=== PATIENT | female | born 1945 | race Caucasian/White ===

== ENCOUNTER 2019-08-25 08:13 | Outpatient (CLI) | payer MEDICARE, BC ==
--- NOTE | 2019-08-25 08:33 | RAD ---
EXAM: Chest Two Views 08/25/2019 8:27 AM HISTORY: Fever COMPARISON: None. FINDINGS: Heart: Normal in size and contour. Pulmonary vessels: Normal. Costophrenic angles: Clear. Lungs: No acute airspace consolidation. Pneumothorax: None. Osseous structures:Intact. Additional findings: Cholecystectomy clips are present within the right upper quadrant. There are m ild vascular calcifications involving the thoracic aortic arch. IMPRESSION: No significant acute intrathoracic disease.
== END 2019-08-25 08:14 | disposition home or self-care (01) ==
LOC: BICRAD 08:13
PROVIDERS: ATTEND Nurse Practitioner Family
DX: R50.9 Fever, unspecified (principal)
CPT/HCPCS: 36415; 71046; 81001; 85025; 86140; 87086

== ENCOUNTER 2019-12-22 12:26 | Outpatient (CLI) | payer MEDICARE, BC, OTHER ==
[2019-12-23 11:41] LABS: SARS-CoV-2 MS2 Positive; SARS-CoV-2 N Gene Negative; SARS-CoV-2 S Gene Negative; SARS-CoV-2 orf1ab Negative
== END 2019-12-22 12:27 | disposition home or self-care (01) ==
LOC: LABBT 12:26
PROVIDERS: ATTEND Orthopaedic Surgery
DX: Z11.59 Encounter for screening for other viral diseases (principal)
CPT/HCPCS: 87635; U0003

== ENCOUNTER 2019-12-27 06:33 | Day surgery (SDC) | payer MEDICARE, BC ==
[2019-12-22 13:53] VITALS: BMI 25.4
[2019-12-27] MEDS ORDERED: EPINEPHrine 0.3 MG in Ophthalmic Irrigation Solution 500 ML IRR SCH (06:45)
[2019-12-27] MEDS ORDERED: Phenylephrine 2.5% Ophth Soln 5 ML BOT ONE (07:07)
[2019-12-27] MEDS ORDERED: Cyclopentolate 1% Opth Drop 2 ML BOT ONE (07:08)
[2019-12-27] MEDS ORDERED: Fentanyl 100 MCG/2 ML VIAL ONE (08:36)
[2019-12-27] MEDS ORDERED: Midazolam HCl 2 mg/2 ml Vial ONE (08:36)
[2019-12-27] MEDS ORDERED: Triamcinolone 40 MG/ML VIAL ONE (10:50)
[2019-12-27] MEDS ORDERED: PROPOFOL 200 MG/20 ML VIAL ONE (10:50)
[2019-12-27] MEDS ORDERED: Indocyanine Green 25 MG/10 ML VIAL ONE (10:50)
[2019-12-27] MEDS ORDERED: Bupivacaine PF 0.75% SDV 10 ML ONE (10:50)
[2019-12-27] MEDS ORDERED: Lidocaine 4% PF 5 ML AMP ONE (10:50)
[2019-12-27] MEDS ORDERED: Lidocaine 1% PF 5 ML VIAL ONE (10:50)
[2019-12-27] MEDS ORDERED: CEFAZOLIN 1 GM VIAL ONE (10:50)
[2019-12-27] MEDS ORDERED: Maxitrol 0.1% Opth Oint 3.5 GM TUBE ONE (10:50)
--- NOTE | 2019-12-27 11:31 | OP ---
DATE OF PROCEDURE: 12/27/2019 PRINCIPAL PREOPERATIVE DIAGNOSIS: Epiretinal membrane, right eye. POSTOPERATIVE DIAGNOSIS: Epiretinal membrane, right eye. PROCEDURE PERFORMED: 1. 25-gauge pars plana vitrectomy, right eye. 2. Epiretinal membrane peel/internal limiting membrane peel, right eye. ESTIMATED BLOOD LOSS: None. SPECIMENS REMOVED: None. COMPLICATIONS: None. ANESTHESIA: MAC with subtenon's block. SUMMARY OF OPERATION: The patient was identified in the preoperative holding area. The correct eye being the right eye was marked for surgery. The patient was taken to the operating room, where MAC anesthesia was induced. The right eye was prepped and draped in the usual sterile ophthalmic fashion for surgery. A wire-clip lid speculum was placed. An inferonasal conjunctival peritomy was fashioned with Maryam scissors for administration of subtenon's block. The block consisted of 1:1 ratio of 4% lidocaine and 0.75% Marcaine. Total of 5 mL was administered. A standard 25-gauge pars plana vitrectomy platform was fashioned with trocars placed approximately 3.5 mm from the limbus. The infusion was noted to be within the vitreous cavity prior to being turned on to an infusion pressure of 30 mmHg. The light pipe and microvitrector were introduced in the eye under visualization of the BIOM viewing system. A careful core and peripheral shave vitrectomy were performed. Following vitrectomy, ICG dye was used to stain the internal limiting membrane. Using the Mateo ILM forceps, an internal limiting/epiretinal membrane peel was performed in circumferential fashion about the fovea. The peel extended approximately 2 disk diameters in radius circumferentially. Following peeling, the microvitrector was reintroduced in the eye to remove any residual vitreous debris. A 360-degree scleral depressed exam of periphery revealed no defects. The cannulas were sequentially removed and all sclerotomies were noted to be watertight. Subconjunctival Ancef and Kenalog were injected. The wire-clip lid speculum was removed followed by application of TobraDex ophthalmic ointment and a light patch and shield. The patient tolerated the procedure well and was taken to outpatient recovery in good condition. Job ID: [id number] [facility]
== END 2019-12-27 10:30 | disposition home or self-care (01) ==
LOC: SDC 06:33
PROVIDERS: ATTEND Ophthalmology Retina Specialist
PROC: 08T43ZZ Resection of Right Vitreous, Percutaneous Approach (ICD-10-PCS; principal; 2019-12-27)
PROC: 08NE3ZZ Release Right Retina, Percutaneous Approach (ICD-10-PCS; 2019-12-27)
DX: H35.371 Puckering of macula, right eye (principal); I10 Essential (primary) hypertension; E78.5 Hyperlipidemia, unspecified; Z79.82 Long term (current) use of aspirin; Z79.899 Other long term (current) drug therapy
CPT/HCPCS: J0171; J0690; J2001; J2250; J2704; J3010; J3301; J3490

== ENCOUNTER 2020-04-05 12:15 | Day surgery (SDC) | payer MEDICARE, BC ==
[2020-04-04 10:50] VITALS: BMI 25.7
[~2020-04-05 12:15] MED LIST: Bupivacaine PF 0.75% SDV 10 ML ONE; CEFAZOLIN 1 GM VIAL ONE; Fluorouracil 100 MG, EPINEPHrine 0.3 MG in Ophthalmic Irrigation Solution 500 ML IRR SCH; Lidocaine 1% PF 5 ML VIAL ONE; Lidocaine 4% PF 5 ML AMP ONE; Maxitrol 0.1% Opth Oint 3.5 GM TUBE ONE; Ondansetron PF 4 MG/2 ML Vial ONE; PHENYLEPHRINE-NS 100 MCG/ML 10 ML SYRINGE ONE; PROPOFOL 200 MG/20 ML VIAL ONE; Triamcinolone 40 MG/ML VIAL ONE
[2020-04-05] MEDS ORDERED: Phenylephrine 2.5% Ophth Soln 5 ML BOT ONE (12:37)
[2020-04-05] MEDS ORDERED: Cyclopentolate 1% Opth Drop 2 ML BOT ONE (12:37)
[2020-04-05] MEDS ORDERED: Fentanyl 100 MCG/2 ML VIAL ONE (15:16)
[2020-04-05] MEDS ORDERED: Midazolam HCl 2 mg/2 ml Vial ONE (15:16)
[2020-04-05] MEDS ORDERED: Promethazine HCl 25 MG/ML VIAL IM PRN (16:50)
[2020-04-05] MEDS ORDERED: HYDROmorphone 2 MG/ML VIAL SLOW IVP PRN (16:50)
[2020-04-05] MEDS ORDERED: Ondansetron HCl/PF 4 MG/2 ML Vial IVP PRN (16:50)
[2020-04-05] MEDS ORDERED: PACU-Morphine 4MG/ML VIAL SLOW IVP PRN (16:50)
[2020-04-05] MEDS ORDERED: Promethazine HCl 25 MG/ML VIAL SLOW IVP PRN (16:50)
[2020-04-05] MEDS ORDERED: Morphine Sulfate 2 MG/ML SYRINGE SLOW IVP PRN (16:50)
--- NOTE | 2020-04-06 14:01 | OP ---
DATE OF PROCEDURE: 04/05/2020 PREOPERATIVE DIAGNOSES: Dislocated intraocular lens and vitreous hemorrhage. POSTOPERATIVE DIAGNOSES: Dislocated intraocular lens and vitreous hemorrhage. PROCEDURE: Pars plana vitrectomy, membrane peel, and intra-ocular lens exchange. ANESTHESIA: General endotracheal anesthesia. DESCRIPTION OF PROCEDURE: The patient was identified in the preoperative holding area. Appropriate informed consent for the planned surgical procedure on the left eye had been obtained. The patient was transported to the operative suite where appropriate cardiopulmonary monitoring was established. General endotracheal anesthesia was initiated. The patient was prepped and draped in usual sterile manner for ophthalmic surgery on the left eye. Lid speculum placed in left eye. A 25-gauge trocar was placed in the conjunctiva and sclera superotemporally, inferotemporally, and supranasally. Infusion line was placed inferotemporally. Light pipe vitreous cutter inserted into the eye. Core vitrectomy was performed. Vitreous hemorrhage was removed from the eye. No holes, breaks, or tears were identified. No other obvious sources of bleeding were identified. The previously sulcus placed intra-ocular lens was displaced into the anterior chamber, cut in half and removed through a superior clear cornea incision. An ALEKSANDRA 9003, 20.5 diopter intraocular lens was then folded and inserted into the anterior chamber where the haptics were fixated in place using the Yamane technique. The lens was noted to center well and the haptics were noted to be well covered. Clear corneal wound was closed with two 10-0 nylon sutures. Conjunctiva and sclerotomies was were closed with 6-0 plain gut suture. Retrobulbar Kenalog and subconjunctival Ancef were placed. Antibiotic ointment was placed. Eye was patched and shielded. The patient taken to postop recovery unit in good condition having suffered no immediate perioperative complications. The patient was instructed to keep patch and shield on, avoid lifting or bending. Followup appointment with Dr. Uribe. Job ID: [id number]
== END 2020-04-05 18:00 | disposition home or self-care (01) ==
LOC: SDC 12:15
PROVIDERS: ATTEND Ophthalmology Retina Specialist
PROC: 08T53ZZ Resection of Left Vitreous, Percutaneous Approach (ICD-10-PCS; principal; 2020-04-05)
PROC: 08PK3JZ Removal of Synthetic Substitute from Left Lens, Percutaneous Approach (ICD-10-PCS; 2020-04-05)
PROC: 08RK3JZ Replacement of Left Lens with Synthetic Substitute, Percutaneous Approach (ICD-10-PCS; 2020-04-05)
DX: H43.12 Vitreous hemorrhage, left eye (principal); T85.22XA Displacement of intraocular lens, initial encounter; Z79.899 Other long term (current) drug therapy
CPT/HCPCS: 66986; 67041; V2632; J0171; J0690; J2001; J2250; J2405; J2704; J3010; J3301; J3490; J9190

== ENCOUNTER → 2021-05-03 | Day surgery (SDC) | payer MEDICARE, BC ==
[2021-05-02 13:50] VITALS: BMI 24.7
[2021-05-03 09:08] LABS: Prothrombin Time 13.4 sec (12.0-14.7)
[2021-05-03 09:12] LABS: Hemoglobin 12.4 g/dL (12.0-16.0); Mean Corpuscular HGB CONC 32.3 g/dL (32.0-36.0); Mean Corpuscular Volume 92.9 fL (78.0-98.0); Mean Platelet Volume 8.4 fL (7.4-10.4); Platelet Count 207 thou/uL (130-400); RBC Distribution Width 13.5 % (11.5-14.5); Red Blood Cell (RBC) Count 4.12 mill/uL (4.20-5.40)
[2021-05-03 09:38] LABS: Band 6 % (5-11); Lymphocytes 8 % (21-51); MDiff Complete? YES; Metamyelocyte 4 % (0-0); Monocytes 5 % (0-10); Myelocyte 8 % (0-0); Neutrophil 68 % (42-75); Platelet Morphology Comment Appears Adequate; RBC Morphology Normal
[2021-05-03 11:28] VITALS: BP 157/97; TEMP 98.6
== END ==
LOC: CT 08:45
PROVIDERS: ATTEND Internal Medicine Hematology & Oncology
PROC: 07DR3ZX Extraction of Iliac Bone Marrow, Percutaneous Approach, Diagnostic (ICD-10-PCS; principal; 2021-05-03)
DX: C92.10 Chronic myeloid leukemia, BCR/ABL-positive, not having achieved remission (principal); J45.909 Unspecified asthma, uncomplicated; F10.10 Alcohol abuse, uncomplicated; I25.10 Atherosclerotic heart disease of native coronary artery without angina pectoris; E78.00 Pure hypercholesterolemia, unspecified; Z79.82 Long term (current) use of aspirin; Z79.899 Other long term (current) drug therapy; Z91.041 Radiographic dye allergy status
CPT/HCPCS: 20225; 77012; 85025; 85097; 85610; 85730; 88184; 88237; 88264; 88280; 88305; 88311; 88313; 88341; 88342; 88365

== ENCOUNTER 2021-12-24 10:21 | Outpatient (CLI) | payer MEDICARE, BC | END 2021-12-24 10:22 | disposition home or self-care (01) | LOC: BICRAD 10:21 | PROVIDERS: ATTEND Family Medicine | DX: M47.812 Spondylosis without myelopathy or radiculopathy, cervical region (principal) | CPT/HCPCS: 72040 ==